=== PATIENT | male | born 1985 | race Hispanic/Latino ===

== ENCOUNTER 2019-06-01 15:44 | Emergency (ER) | payer OTHER, SELFPAY ==
[2019-06-01] MEDS ORDERED: ASPIRIN 81 MG CHEWABLE TABLET ONE (16:07)
[2019-06-01] MEDS ORDERED: PANTOPRAZOLE 40 MG INJ ONE (16:08)
[2019-06-01] MEDS ORDERED: DIAZEPAM 5 MG TABLET ONE ×2 (16:08→17:41)
[2019-06-01 16:25] LABS: Basophils % 0.9 % (0-1.3); Lymphocytes % 23.3 % (15.3-44.8); RBC Red Blood Cell Count 5.06 M/uL (4.33-5.43)
[2019-06-01 16:29] LABS: Protime INR 1.03
[2019-06-01 16:47] LABS: ALT/SGPT 80 U/L (12-78); AST/SGOT 36 U/L (15-37); Albumin 4.3 g/dL (3.4-5.0); Alkaline Phosphatase 116 U/L (45-117); BUN Blood Urea Nitrogen 17 mg/dL (7-18); Bicarbonate 27 mmol/L (21-32); Bilirubin Direct < 0.1 mg/dL (0-0.2); Bilirubin Total 0.2 mg/dL (0.2-1.0); Glucose Level 135 mg/dL (74-106); Magnesium 2.4 mg/dL (1.8-2.4); NT PRO-BNP 148 pg/mL (<125); Potassium 3.4 mmol/L (3.5-5.1); Protein, Total 8.1 g/dL (6.4-8.2); Sodium Level 139 mmol/L (136-145); Troponin (Emerg Dept Use Only) < 0.02 ng/mL (0.0-0.045)
[2019-06-01] MEDS ORDERED: ENALAPRIL 10 MG TAB ONE (17:06)
[2019-06-01] MEDS ORDERED: cloNIDine HCL 0.1 MG TAB ONE (19:10)
--- NOTE | 2019-06-01 19:20 | EDPHYS ---
Physician Documentation [facility] Name: Marty Canela Age: 34 yrs Sex: Male : 1985 Arrival Date: 06/01/2019 Time: 15:48 Bed 18 Private MD: ED Physician Ziyad Bueno HPI: 06/01 16:13 This 34 yrs old Male presents to ER via Ambulatory with complaints of Chest snw Pain. 16:13 Onset: The symptoms/episode began/occurred acutely. Associated signs and symptoms: snw Pertinent positives: chest pain, light-headed, high blood pressure. Modifying factors: The patient symptoms are alleviated by nothing. It is unknown whether or not the patient has had similar symptoms in the past. It is unknown whether or not the patient has recently seen a physician, sees Dr. Hartman. takes enalapril. Historical: - Allergies: 15:54 No Known Allergies; iw - PMHx: 15:54 Hypertension; iw - PSHx: 15:54 None; iw - Immunization history:: Adult Immunizations not up to date. - Social history:: Smoking status: Patient/guardian denies using tobacco. - Ebola Screening: : Patient negative for fever greater than or equal to 101.5 degrees Fahrenheit, and additional compatible Ebola Virus Disease symptoms Patient denies exposure to infectious person Patient denies travel to an Ebola-affected area in the 21 days before illness onset No symptoms or risks identified at this time. ROS: 16:13 Eyes: Negative for injury, pain, redness, and discharge, ENT: Negative for injury, snw pain, and discharge, Neck: Negative for injury, pain, and swelling. 16:13 Respiratory: Negative for shortness of breath, cough, wheezing, and pleuritic chest pain, Abdomen/GI: Negative for abdominal pain, nausea, vomiting, diarrhea, and constipation, Back: Negative for injury and pain, : Negative for injury, bleeding, discharge, and swelling, MS/Extremity: Negative for injury and deformity, Skin: Negative for injury, rash, and discoloration. 16:13 Constitutional: Positive for body aches, malaise. 16:13 Cardiovascular: Positive for chest pain. 16:13 Neuro: Positive for light-headed. Exam: 16:02 Constitutional: This is a well developed, well nourished patient who is awake, alert, snw and in no acute distress. Head/Face: Normocephalic, atraumatic. Eyes: Pupils equal round and reactive to light, extra-ocular motions intact. Lids and lashes normal. Conjunctiva and sclera are non-icteric and not injected. Cornea within normal limits. Periorbital areas with no swelling, redness, or edema. ENT: Nares patent. No nasal discharge, no septal abnormalities noted. Tympanic membranes are normal and external auditory canals are clear. Oropharynx with no redness, swelling, or masses, exudates, or evidence of obstruction, uvula midline. Mucous membranes moist. Neck: Trachea midline, no thyromegaly or masses palpated, and no cervical lymphadenopathy. Supple, full range of motion without nuchal rigidity, or vertebral point tenderness. No Meningismus. Chest/axilla: Normal chest wall appearance and motion. Nontender with no deformity. No lesions are appreciated. Respiratory: Lungs have equal breath sounds bilaterally, clear to auscultation and percussion. No rales, rhonchi or wheezes noted. No increased work of breathing, no retractions or nasal flaring. Abdomen/GI: Soft, non-tender, with normal bowel sounds. No distension or tympany. No guarding or rebound. No evidence of tenderness throughout. Back: No spinal tenderness. No costovertebral tenderness. Full range of motion. Skin: Warm, dry with normal turgor. Normal color with no rashes, no lesions, and no evidence of cellulitis. MS/ Extremity: Pulses equal, no cyanosis. Neurovascular intact. Full, normal range of motion. Neuro: Awake and alert, GCS 15, oriented to person, place, time, and situation. Cranial nerves II-XII grossly intact. Motor strength 5/5 in all extremities. Sensory grossly intact. Cerebellar exam normal. Normal gait. 16:02 Cardiovascular: Rate: tachycardic, Pulses: no pulse deficits are appreciated. 16:02 Psych: Behavior/mood is anxious, Affect is animated. Vital Signs: 15:54 BP 167 / 110; Pulse 115; Resp 18 S; Temp 97.7(TE); Pulse Ox 99% on R/A; Weight 108.86 iw kg; Height 5 ft. 11 in. (180.34 cm); 16:58 BP 179 / 122; Pulse 110; Resp 18; Pulse Ox 100% on R/A; mh5 17:33 BP 171 / 117; Pulse 114; Resp 20; Pulse Ox 99% on R/A; em 18:24 BP 182 / 124; Pulse 103; Resp 18; Pulse Ox 100% on R/A; mh5 19:18 BP 173 / 116; Pulse 102; Resp 19; Temp 98; Pulse Ox 99% ; rr5 15:54 Body Mass Index 33.47 (108.86 kg, 180.34 cm) iw Hari Coma Score: 16:02 Eye Response: spontaneous(4). Verbal Response: oriented(5). Motor Response: obeys snw commands(6). Total: 15. MDM: 15:50 Patient medically screened. snw 17:39 Data reviewed: vital signs, nurses notes. Data interpreted: Pulse oximetry: on room air snw is 99 %. Interpretation: normal. Counseling: I had a detailed discussion with the patient and/or guardian regarding: the historical points, exam findings, and any diagnostic results supporting the discharge/admit diagnosis, the presence of at least one elevated blood pressure reading (>120/80) during this emergency department visit, lab results, the need for outpatient follow up, to return to the emergency department if symptoms worsen or persist or if there are any questions or concerns that arise at home. Response to treatment: the patient's symptoms have mildly improved after treatment, encouraged to stop stimulants, take medications as directed per PCP, rest. Refusal of service: The patient/guardian displays adequate decision making capability and despite a detailed discussion of alternatives, benefits, risks, and consequences refuses: all X-rays. Special discussion: Based on the patient's history, exam, and Dx evaluation, there is no indication for emergent intervention or inpatient Tx. It is understood by the patient/guardian that if the Sx's persist or worsen they need to return immediately for re-evaluation. Based on the history and exam findings, there is no indication for further emergent testing or inpatient evaluation. I discussed with the patient/guardian the need to see the primary care provider for further evaluation of the symptoms. dangers of stimulant use. 17:42 Transition of care: After a detail discussion of the patient's case, care is snw transferred to Cyn THEODORE. 19:18 ED course: Pt refuses clonidine. Pt does not have any symptoms at this time and would kb like to go home. Educated to keep blood pressure log and follow up with PCP for possible medication adjustment. Verbal understanding received. . 06/01 16:01 Order name: Basic Metabolic Panel; Complete Time: 16:48 snw 06/01 16:01 Order name: CBC with Diff; Complete Time: 16:35 snw 06/01 16:01 Order name: LFT's; Complete Time: 16:48 snw 06/01 16:01 Order name: Magnesium; Complete Time: 16:48 snw 06/01 16:01 Order name: NT PRO-BNP; Complete Time: 16:48 snw 06/01 16:01 Order name: PT-INR; Complete Time: 16:35 snw 06/01 16:01 Order name: Troponin (emerg Dept Use Only); Complete Time: 16:48 snw 06/01 16:01 Order name: EKG; Complete Time: 16:02 snw 06/01 16:01 Order name: Cardiac monitoring; Complete Time: 16:03 snw 06/01 16:01 Order name: EKG - Nurse/Tech; Complete Time: 16:57 snw 06/01 16:01 Order name: IV Saline Lock; Complete Time: 16:04 snw 06/01 16:01 Order name: Labs collected and sent; Complete Time: 16:04 snw 06/01 16:01 Order name: O2 Per Protocol; Complete Time: 16:04 snw 06/01 16:01 Order name: O2 Sat Monitoring; Complete Time: 16:04 snw 06/01 16:55 Order name: Recheck B/P; Complete Time: 16:57 snw 06/01 17:31 Order name: Recheck B/P; Complete Time: 17:34 snw Administered Medications: 16:27 Drug: Aspirin Chewable Tablet 324 mg Route: PO; iw 16:57 Follow up: Response: No adverse reaction em 16:28 Drug: ProTONIX 40 mg Route: IVP; Site: left antecubital; iw 16:57 Follow up: Response: No adverse reaction em 16:30 Not Given (Patient Refused): Valium 5 mg PO once em 17:08 Drug: Enalapril 5 mg Route: PO; em 17:08 Drug: Enalapril 5 mg Route: PO; em 17:44 Drug: Valium 5 mg Route: PO; em 19:00 Follow up: Response: No adverse reaction rr5 19:18 Not Given (Patient Refused): cloNIDine 0.2 mg PO once rr5 Disposition: 06/01/19 19:20 Discharged to Home. Impression: Hypertensive urgency, Other stimulant use, unspecified, Gastro-esophageal reflux disease. - Condition is Stable. - Discharge Instructions: Nonspecific Chest Pain, Stimulant Use Disorder-Cocaine, Gastroesophageal Reflux Disease, Adult, Hypertension. - Prescriptions for Protonix 40 mg Oral Tablet - take 1 tablet by ORAL route once daily; 30 tablet. - Medication Reconciliation Form, Thank You Letter, Antibiotic Education, Prescription Opioid Use, Work release form form. - Follow up: Emergency Department; When: As needed; Reason: Worsening of condition. Follow up: Private Physician; When: 2 - 3 days; Reason: Recheck today's complaints, Continuance of care, Re-evaluation by your physician. Addendum: 06/07/2019 07:08 Co-signature as Attending Physician, Ziyad Bueno MD. r n Signatures: Dispatcher [employer] [facility] Cyn Benton, FLOTATION OPERATOR-C FLOTATION OPERATOR-Ckb Jossy Tracy, FLOTATION OPERATOR-C FLOTATION OPERATOR-Csnw Jaime Quinteros, CYLINDER STEAMER CYLINDER STEAMER em Kristie Sellers, RN Ziyad Casarez MD MD rn Roque, Raymond, RN RN rr5 Corrections: (The following items were deleted from the chart) 06/01 16:27 16:02 Chest Single View+RAD.RAD.[email or web address] ordered. [facility] 19:27 19:20 06/01/2019 19:20 Discharged to Home. Impression: Hypertensive urgency; Other rr5 stimulant use, unspecified; Gastro-esophageal reflux disease. Condition is Stable. Discharge Instructions: Nonspecific Chest Pain, Stimulant Use Disorder-Cocaine, Gastroesophageal Reflux Disease, Adult, Hypertension. Prescriptions for Protonix 40 mg Oral Tablet - take 1 tablet by ORAL route once daily; 30 tablet. and Forms are Work release form, Medication Reconciliation Form, Thank You Letter, Antibiotic Education, Prescription Opioid Use. Follow up: Emergency Department; When: As needed; Reason: Worsening of condition. Follow up: Private Physician; When: 2 - 3 days; Reason: Recheck today's complaints, Continuance of care, Re-evaluation by your physician. kb
--- NOTE | 2019-06-01 19:20 | ER ---
Nurse's Notes [facility] Name: Marty Canela Age: 34 yrs Sex: Male : 1985 Arrival Date: 06/01/2019 Time: 15:48 Bed 18 Private MD: Diagnosis: Hypertensive urgency;Other stimulant use, unspecified;Gastro-esophageal reflux disease Presentation: 06/01 15:52 Presenting complaint: Patient states: feels like his BP is high, was drinking a beer iw and eating a taco and started feeling bad, feels pressure in his chest, ran out of his BP medicine yesterday, was taking enalapril 20 mg. Transition of care: patient was not received from another setting of care. Onset of symptoms was June 01, 2019. Risk Assessment: Do you want to hurt yourself or someone else? Patient reports no desire to harm self or others. Initial Sepsis Screen: Does the patient meet any 2 criteria? No. Patient's initial sepsis screen is negative. Does the patient have a suspected source of infection? No. Patient's initial sepsis screen is negative. Care prior to arrival: None. 15:52 Method Of Arrival: Ambulatory iw 15:52 Acuity: DANIE 3 iw Historical: - Allergies: 15:54 No Known Allergies; iw - PMHx: 15:54 Hypertension; iw - PSHx: 15:54 None; iw - Immunization history:: Adult Immunizations not up to date. - Social history:: Smoking status: Patient/guardian denies using tobacco. - Ebola Screening: : Patient negative for fever greater than or equal to 101.5 degrees Fahrenheit, and additional compatible Ebola Virus Disease symptoms Patient denies exposure to infectious person Patient denies travel to an Ebola-affected area in the 21 days before illness onset No symptoms or risks identified at this time. Screenin:02 Abuse screen: Denies threats or abuse. Nutritional screening: No deficits noted. em Tuberculosis screening: No symptoms or risk factors identified. Fall Risk None identified. Assessment: 16:25 General: Appears in no apparent distress. comfortable, well groomed, well developed, em well nourished, Behavior is cooperative, anxious, Denies fever. Pain: Complains of pain in chest Pain does not radiate. Pain currently is 0 out of 10 on a pain scale. Pain began 1 hour ago. Neuro: Level of Consciousness is awake, alert, obeys commands, Oriented to person, place, time, situation, Appropriate for age. Cardiovascular: Capillary refill < 3 seconds Patient's skin is warm and dry. Rhythm is sinus rhythm. Respiratory: Airway is patent Respiratory effort is even, unlabored, Respiratory pattern is regular, symmetrical. GI: Patient currently denies nausea, vomiting. Derm: Skin is intact, is healthy with good turgor, Skin is pink, warm \T\ dry. Musculoskeletal: Capillary refill < 3 seconds, Range of motion: intact in all extremities. 16:30 Reassessment: reports using cocaine 3 days ago, appears anxious. em 17:30 Reassessment: Patient appears in no apparent distress at this time. Patient and/or em family updated on plan of care and expected duration. Pain level reassessed. Patient is alert, oriented x 3, equal unlabored respirations, skin warm/dry/pink. elevated BP, provider notified, reports taking half of the 20 mg enalapril Patient states symptoms have not improved. 19:18 Reassessment: Patient appears in no apparent distress at this time. patient refused to rr5 take BP medication. wants to talk to provider and to go to [facility]. 19:24 Reassessment: Patient appears in no apparent distress at this time. Patient is alert, rr5 oriented x 3, equal unlabored respirations, skin warm/dry/pink. ED provider talk to patient and order for discharge. discharge instruction given and explained without complaints made assisted by instrument tech going to [facility]. Vital Signs: 15:54 BP 167 / 110; Pulse 115; Resp 18 S; Temp 97.7(TE); Pulse Ox 99% on R/A; Weight 108.86 iw kg; Height 5 ft. 11 in. (180.34 cm); 16:58 BP 179 / 122; Pulse 110; Resp 18; Pulse Ox 100% on R/A; mh5 17:33 BP 171 / 117; Pulse 114; Resp 20; Pulse Ox 99% on R/A; em 18:24 BP 182 / 124; Pulse 103; Resp 18; Pulse Ox 100% on R/A; mh5 19:18 BP 173 / 116; Pulse 102; Resp 19; Temp 98; Pulse Ox 99% ; rr5 15:54 Body Mass Index 33.47 (108.86 kg, 180.34 cm) iw Hari Coma Score: 16:02 Eye Response: spontaneous(4). Verbal Response: oriented(5). Motor Response: obeys snw commands(6). Total: 15. ED Course: 15:48 Patient arrived in ED. mr 15:49 Leida Merlos, RN is Primary Nurse. tw2 15:49 Jossy Tracy FNP-C is PHCP. snw 15:50 Ziyad Bueno MD is Attending Physician. snw 15:50 Cole May PA is PHCP. jmm 15:50 Ziyad Bueno MD is Attending Physician. [facility] 15:54 Triage completed. iw 16:02 Patient has correct armband on for positive identification. Placed in gown. Bed in low em position. Call light in reach. hotel service manager on. Pulse ox on. NIBP on. 16:02 Patient maintains SpO2 saturation greater than 95% on room air. em 16:03 Arm band placed on. em 17:56 PHCP role handed off by Jossy Tracy FNP-C kb 17:56 Cyn Benton FNP-C is PHCP. kb 19:25 No provider procedures requiring assistance completed. IV discontinued, intact, rr5 bleeding controlled, No redness/swelling at site. Pressure dressing applied. Administered Medications: 16:27 Drug: Aspirin Chewable Tablet 324 mg Route: PO; iw 16:57 Follow up: Response: No adverse reaction em 16:28 Drug: ProTONIX 40 mg Route: IVP; Site: left antecubital; iw 16:57 Follow up: Response: No adverse reaction em 16:30 Not Given (Patient Refused): Valium 5 mg PO once em 17:08 Drug: Enalapril 5 mg Route: PO; em 17:08 Drug: Enalapril 5 mg Route: PO; em 17:44 Drug: Valium 5 mg Route: PO; em 19:00 Follow up: Response: No adverse reaction rr5 19:18 Not Given (Patient Refused): cloNIDine 0.2 mg PO once rr5 Outcome: 19:20 Discharge ordered by . kb 19:25 Discharged to home ambulatory, with family. rr5 19:25 Condition: stable 19:25 Discharge instructions given to patient, Instructed on discharge instructions, follow up and referral plans. medication usage, Demonstrated understanding of instructions, follow-up care, medications, Prescriptions given X 1. 19:27 Patient left the ED. rr5 Signatures: Cyn Benton, ANNIEC FUNCTIONAL TESTER-Ckb Jossy Tracy FNP-C FNP-Cole Miller PA PA jmm Rivera, Mary mr Aldair, Jaime, INVESTIGATIONS DIRECTOR INVESTIGATIONS DIRECTOR Kristie Balbuena RN RN iw Leida Merlos RN RN [facility] [place] [id number] Miguel Richard RN RN rr5
[2019-06-01 22:29] VITALS: BP 173/116; O2SAT 99
[2019-06-01 22:39] VITALS: TEMP 100.5
--- NOTE | 2019-06-02 15:32 | EKG ---
Test Date: 2019-06-01 Test Time: 16:52:03 Golf Ball Molder: JUNITO MEASUREMENT RESULTS: Intervals: Rate: 108 [place]: 136 QRSD: 80 QT: 350 QTc: 469 [place]: P: 35 NJ: 136 QRS: -3 T: 15 INTERPRETIVE STATEMENTS: Sinus tachycardia Possible Left atrial enlargement Left ventricular hypertrophy Abnormal ECG Compared to ECG 06/01/2019 16:44:55 T-wave abnormality no longer present Electronically Signed On 06-02-19 15:30:58 AEROSPACE ENGINEER by Keagan Rodríguez
== END 2019-06-01 19:27 | disposition home or self-care (01) ==
LOC: ER 15:44
DX: I16.0 Hypertensive urgency (principal); K21.9 Gastro-esophageal reflux disease without esophagitis; F15.90 Other stimulant use, unspecified, uncomplicated
CPT/HCPCS: 36415; 80048; 80076; 83735; 83880; 84484; 85025; 85610; 93005; 96374; 99284; C9113